=== PATIENT | female | born 1980 | race Caucasian/White ===

== ENCOUNTER 2019-10-27 11:22 | Emergency (ER) | payer SELFPAY ==
[~2019-10-27] VITALS: Ht 172.7 cm; Wt 61.2 kg
--- NOTE | 2019-10-27 11:32 | NUR ---
BIB PD OFFICER SONIA FROM [facility], C/O HOMICIDAL IDEATION "I WANT TO KILL MY SISTER", -SI, TO ER BED 13, HOOKED TO MONITOR, AWAITING MD SRINIVASAN.
--- NOTE | 2019-10-27 11:32 | NUR ---
DR RIOS AT BEDSIDE
[2019-10-27 12:05] LABS: BASOPHILS % (AUTO) 0.2 % (0.0-2.0); EOSINOPHILS % (AUTO) 0.1 % (0.0-6.0); HEMATOCRIT 37 % (33-45); HEMOGLOBIN 12.2 g/dL (11.5-14.8); LYMPHOCYTES # (AUTO) 1.4 /CMM (0.8-4.8); MEAN CORPUSCULAR HGB CONC 33 g/dl (31.0-36.0); MEAN CORPUSCULAR VOLUME 91 fL (82-100); MONOCYTES # (AUTO) 0.7 /CMM (0.1-1.30); MONOCYTES % (AUTO) 10.6 % (2.0-12.0); NEUTROPHILS # (AUTO) 4.1 /CMM (1.8-8.9); NEUTROPHILS % (AUTO) 66.1 % (43.0-81.0); PLATELET COUNT (AUTO) 231 /CMM (150-450); RED BLOOD CELL COUNT(AUTO) 4.07 MIL/uL (4.0-5.2); WHITE BLOOD COUNT (AUTO) 6.2 K/uL (4.3-11.0)
[2019-10-27 12:11] LABS: CALCIUM, SERUM 9.6 mg/dL (8.5-10.1); CARBON DIOXIDE 26 mmol/L (21-32); CHLORIDE 106 mmol/L (98-107); CREATININE 1.1 mg/dL (0.6-1.3); GLUCOSE 106 mg/dL (74-106); POTASSIUM 3.3 mmol/L (3.5-5.1); SODIUM SERUM 141 mmol/L (136-145); UREA NITROGEN, BLOOD 16 mg/dL (7-18)
[2019-10-27 12:21] LABS: APPEARANCE,URINE Clear (CLEAR); BILIRUBIN,URINE SMALL (NEGATIVE); BLOOD, URINE Negative Ery/uL (NEGATIVE); COLOR,URINE Yellow (YELLOW); KETONES,URINE Trace (NEGATIVE); LEUKOCYTE ESTERASE ,URINE Negative (NEGATIVE); NITRITE, URINE Negative (NEGATIVE); PROTEIN,URINE 100 mg/dl (NEGATIVE); UGLUCOSE Negative (NEGATIVE); UROBILINOGEN,URINE 0.2 EU/dL (0.2)
[2019-10-27 12:26] LABS: ALANINE AMINOTRANSFERASE 105 U/L (12-78); ALBUMIN 3.8 g/dL (3.4-5.0); ALCOHOL, BLOOD < 3 mg/dL (0-0); ALKALINE PHOSPHATASE 56 U/L (46-116); ASPARTATE AMINOTRANSFERASE 85 U/L (15-37); BILIRUBIN,DIRECT 0.2 mg/dL (0.0-0.2); BILIRUBIN,TOTAL 0.6 mg/dL (0.2-1.0); TOTAL PROTEIN, SERUM 7.6 g/dL (6.4-8.2)
[2019-10-27 12:27] LABS: ACETAMINOPHEN 0 ug/ml (10-30)
[2019-10-27 12:38] LABS: BACTERIA,URINE Few /HPF (None Seen); RBC,URINE 0-2 /HPF (0-2); SQUAMOUS EPITHELIAL CELL,UR Few /HPF (None Seen); WBC,URINE 0-2 /HPF (0-3)
--- NOTE | 2019-10-27 12:50 | NUR ---
Patricia reed in ED - 10/27/19 at 1255 by LAWRENCE Spoke to [facility] medically cleared for psch refer/crisis team
--- NOTE | 2019-10-27 13:12 | NUR ---
ER provider in and evaluated patient. For discharge. Meal provided prior to discharging to previous living condition
[2019-10-27 13:20] VITALS: BP 110/70
--- NOTE | 2019-10-27 13:21 | NUR ---
Patient discharged to previous living condition in stable condition. Written and verbal after care instructions given. Patient verbalizes understanding of instruction.
== END 2019-10-27 13:20 | disposition home or self-care (01) ==
LOC: ER 11:27
DX: R45.1 Restlessness and agitation (principal); R45.6 Violent behavior; F19.10 Other psychoactive substance abuse, uncomplicated; J45.909 Unspecified asthma, uncomplicated; F17.200 Nicotine dependence, unspecified, uncomplicated; Z59.0 Homelessness; Z88.6 Allergy status to analgesic agent; Z88.1 Allergy status to other antibiotic agents
CPT/HCPCS: 36415; 80048; 80076; 80305; 80307; 80329; 81001; 85025; 99283; G0480; 81000-TC